=== PATIENT | female | born 1995 | race Caucasian/White ===

== ENCOUNTER 2022-10-14 21:05 | Emergency (ER) | payer OTHER, SELFPAY ==
[2022-10-14 21:09] VITALS: BP 139/76; PULSE 96; RESP 17; TEMP 37.1; O2SAT 95; BMI 38.2
[2022-10-14 21:41] LABS: Appearance Urine Clear; Color Urine Yellow; Glucose Urine UA Negative (Negative); Leukocyte Esterase Urine Trace (Negative); Nitrite Urine Negative (Negative); PH 5.5 (5.0-9.0); UMIC TRIGGER UA YES; Urine Blood Negative (Negative); Urine Ketones Negative (Negative); Urine Protein Negative (Neg-Trace)
[2022-10-14 21:42] LABS: UPreg QC Valid YES; Urine Pregnancy NEGATIVE (NEGATIVE)
[2022-10-14 21:46] LABS: Bacteria Urine None Seen (None Seen); Hyaline Casts Urine 0-2 /LPF (0-2); RBC Urine 0-2 /HPF (0-2); WBC Urine 0-5 /HPF (0-5)
[2022-10-14 21:53] LABS: Amphetamine Screen Urine Not Detected (Not Detect); Barbiturates, Urine Not Detected (Not Detect); Benzodiazepines Screen Urine Not Detected (Not Detect); Cannabinoid Screen Urine Not Detected (Not Detect); Cocaine Screen Urine Not Detected (Not Detect); Fentanyl, urine Not Detected (Not Detect); Opiate Screen Urine Not Detected (Not Detect); Phencyclidine Screen Urine Not Detected (Not Detect)
[2022-10-14 22:04] LABS: COVID-19 Test Negative (Negative); IDNOW Serial# 6674DD1D
[2022-10-14 22:45] LABS: MANUAL DIFF FLAG NO
[2022-10-14 22:46] LABS: Basophils Absolute Auto 0.1 X10*3/uL (0.0-0.2); Basophils Percent Auto 0.7 % (0-2); Eosinophils Absolute Auto 0.2 X10*3/uL (0.0-0.4); Eosinophils Percent Auto 1.6 % (0-4); Hematocrit 40.8 % (37.0-47.0); Hemoglobin 14.2 g/dl (12.0-16.0); Imm Gran Abs Auto 0.05 X10*3/uL (0.00-0.03); Imm Gran Pct Auto 0.5 % (0.0-0.4); Lymphocytes Absolute Auto 2.7 X10*3/uL (1.2-4.9); Mean Corpuscular HGB Conc 34.8 g/dl (31.0-35.0); Mean Corpuscular Hemoglobin 29.9 pg (27.0-33.0); Mean Corpuscular Volume 85.9 fL (80.0-98.0); Mean Platelet Volume 8.9 fL (9.4-12.3); Monocytes Percent Auto 8.8 % (2-11); Neutrophils Absolute Auto 6.9 x10*3/uL (2.0-8.3); Neutrophils Percent Auto 63.4 % (45-73); Platelet Count 267 X10*3/uL (160-400); Red Blood Count 4.75 X10*6/uL (4.20-5.50); Red Cell Distribution Width 11.9 % (11.0-16.0); White Blood Count 10.9 X10*3/uL (4.8-10.8)
[2022-10-14 23:02] LABS: Acetaminophen LAB < 17 mcg/mL (<30); Alanine Aminotransferase 18 U/L (0-31); Alkaline Phosphatase 51 U/L (39-117); Anion Gap 16 (12-20); Aspartate Amino Transferase 13 U/L (5-31); Bilirubin Total 0.3 mg/dL (0.0-1.0); Blood Urea Nitrogen 11 mg/dL (9-16); Calcium 9.3 mg/dL (8.4-10.2); Carbon Dioxide 25 mmol/L (22-29); Chloride 105 mmol/L (96-108); Creatinine Clr Calc Pharmacy 115.7; Estimated Glomerular Filt Rate > 60; Ethanol < 10 mg/dL; Glucose Random 85 mg/dL (60-115); Salicylate < 5.0 mg/dL (15-30); Sodium 142 mmol/L (135-145)
[2022-10-14 23:52] VITALS: BP 108/72; PULSE 87; RESP 16; TEMP 36.8; O2SAT 97
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
--- NOTE | 2022-10-15 05:34 | PC.NURSE ---
Patient slept through the night, no distress observed/reported, medication rec completed/approved/Mar active, behavior non concerning, VSS, patient is awaiting care team evaluation in the morning, will continue to monitor.
--- NOTE | 2022-10-15 06:57 | PC.NURSE ---
patient appears to remain asleep at present respirations are even and unlabored patient appears in no distress
[2022-10-15] MEDS: FLUoxetine HCl 20 MG CAPSULE 60 MG PO (10:02)
[2022-10-15 10:05] VITALS: BP 126/70; PULSE 83; RESP 13; TEMP 36.5; O2SAT 97
--- NOTE | 2022-10-15 13:23 | MHC.CARE ---
PHP Referral submitted
== END 2022-10-15 15:07 | disposition home or self-care (01) ==
PROVIDERS: Physician Assistant; Emergency Provider Internal Medicine; PCP Internal Medicine
DX: F33.1 Major depressive disorder, recurrent, moderate (principal); R45.851 Suicidal ideations; Z20.822 Contact with and (suspected) exposure to COVID-19; Z20.828 Contact with and (suspected) exposure to other viral communicable diseases; Z79.899 Other long term (current) drug therapy
CPT/HCPCS: 36415; 80053; 80143; 80179; 80307; 81001; 81025; 82077; 85025; 87635; 99284; S9485

== ENCOUNTER 2022-11-13 09:45 | Outpatient (RCR) | payer OTHER, SELFPAY ==
[2022-10-22 11:31] VITALS: BP 100/68; PULSE 88; TEMP 36.6
[2022-10-22 11:35] VITALS: BMI 38.9
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
--- NOTE | 2022-10-23 15:48 | HO.PHP ---
The clients case was discussed and opened in treatment team
--- NOTE | 2022-10-23 15:49 | HO.PHP ---
The client called out because her daughter is ill.
--- NOTE | 2022-10-28 13:14 | HO.PHP ---
Sanjana called out because her daughter is still sick.
--- NOTE | 2022-10-29 10:07 | P.PNPSP_ITS ---
Subjective Subjective Date of Service: 10/29/22 Reason For Visit: unspecified depressive d/o Medical Problems Affecting Mental Status: No Interim History: Describes mood as okay, up and down . States she has had a stressful few days. Her youngest child was in the hospital last week, multiple tests, has ear infection. No SI, no safety concerns. Would like to add medication, either Lamictal or Wellbutrin. Medication Compliance: Yes Side effects from medications: No Attending Groups: Yes Review of Systems Acute medical concerns: No Medical Review of Systems: unchanged Review of Systems Review of Systems Yes all other systems are reviewed and are negative Constitutional: Reports no additional constitutional complaints Mental Status Exam Mental Status Exam Patient Appearance: Appropriate Patient Orientation: Person, Place, Time and Situation Level of Consciousness: Appropriate Patient Behavior: Appropriate, Cooperative and Good Eye Contact Mood Description: Depressed and Anxious Affect Description: Depressed and Anxious Patient Cognition Impaired: No Ability to Follow Directions: Excellent Speech Pattern: Clear and Appropriate Memory Description: Intact Hallucinations: None Delusions: Not Present Perceptual Disturbances: Depersonalization Thought Process: Intact Thought Content: positive for Intact Depressive Symptoms: Increased Anxiety, Difficulty Sleeping, Loss of Int. in Ac tivity, Hopelessness, Loss of Energy and Difficulty Concentrating Judgement: Fair Diagnostics Vital Signs (24Hr): BMI result Body Mass Index 38.9 Assessment & Plan Assessment & Plan (1) Major depressive disorder, recurrent, moderate: Status: Acute Code(s): F33.1 - Major depressive disorder, recurrent, moderate Assessment and Plan: Patient continues with depressed mood an affect, anxiety. States her mood has been ?up and down ?. No SI reported, no safety concerns. Discussed medications Wellbutrin and Lamictal. She has tried both in the past, with positive effect. Reviewed her current symptoms. States that she is having difficulty in the mornings getting up been motivated, tending to ADLs in the morning. Also having trouble with concentration. Has taken Wellbutrin in the past, last summer. States that when she was taking it with the fluoxetine, she was able to work full-time, home life was good, felt content. Willing to restart the medication at this time. (2) Anxiety disorder, unspecified: Status: Acute Code(s): F41.9 - Anxiety disorder, unspecified Plan 1. Continue with current [facility] plan of care. 2. Start Wellbutrin SR 100 mg daily. 3. Continue with other medications as currently prescribed. 4. Follow-up as per protocol. Patient educated on: diagnosis, medication risk/benefits and therapeutic strategies Informed Consent: understands Reason for contiued partial hosp. stay Substantial Risk for: harm to self, inability to function and rapid decompensation Certification I certify that partial hospital treatment is medically necessary due to the symptoms and problems resulting from the patient's mental illness and the failure to treat the patient at the partial hospital level of care would likely result in the patient requiring inpatient psychiatric care which could not be prevented at a less intensive level of care. Total time managing care of this patient today __20__ minutes. Discharge Plan Discharge Attending provider: Gulshan Alves Medications: New bupropion HCl [Wellbutrin SR] 100 mg tablet sustained-release 12 hr 100 mg PO DAILY Qty: 30 0RF No Action trazodone 50 mg tablet 50 mg PO BEDTIME clonazepam 1 mg tablet 1 mg PO BID PRN (Reason: Anxiety) sumatriptan succinate 50 mg tablet 50 mg PO DIRECTED PRN (Reason: Migraine Headache) Rx Instructions: Take after onset of migraine. MR in 2 hours if ineffective. NTE 200 mg in 24 hours. gabapentin 300 mg capsule 300 mg PO BID fluoxetine 20 mg capsule 60 mg PO QAM
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
--- NOTE | 2022-11-10 14:04 | P.PNPSP_ITS ---
Subjective Subjective Date of Service: 11/10/22 Reason For Visit: unspecified depressive d/o Guardianship: No Medical Problems Affecting Mental Status: No Interim History: Reports feeling manic , describes little sleep, feeling full of energy, increased sexual thoughts, wanting to go shopping. Also reports AH, hearing scratching noises , having racing thoughts. Denies SI/HI. Willing to trial mood stabilizer. Medication Compliance: Yes Side effects from medications: Yes (hypomanic sx) Attending Groups: Yes Review of Systems Acute medical concerns: No Medical Review of Systems: changed Review of Systems Review of Systems hypomanic sx Genitourinary: Reports change in libido Reports behavioral changes Psychiatric: Reports behavioral changes, Reports change in libido and Reports hallucinations Endocrine: Reports change in libido Mental Status Exam Mental Status Exam Patient Appearance: Appropriate Patient Orientation: Person, Place, Time and Situation Level of Consciousness: Appropriate and Alert Patient Behavior: Talkative, Cooperative, Good Eye Contact and Crying (tearful at times) Mood Description: Labile and Expansive Affect Description: Labile and Expansive Patient Cognition Impaired: No Ability to Follow Directions: Good Speech Pattern: Clear, Rapid, Excessive and Pressured Memory Description: Intact Hallucinations: Auditory (hearing scratching noises) Delusions: Not Present Thought Process: Racing Thought Content: positive for Flight of Ideas and positive for Circumstantial Depressive Symptoms: Insomnia Judgement: Fair Diagnostics Vital Signs (24Hr): BMI result Body Mass Index 38.9 Assessment & Plan Assessment & Plan (1) Bipolar disorder: Qualifiers: Current bipolar episode type: hypomanic Status: Acute Code(s): F31.9 - Bipolar disorder, unspecified Assessment and Plan: Provisional Dx. Patient reports her mother has bipolar disorder, and that she has witnessed her mother in manic state in the past. Feels that she is hypomanic at this time, with sx of increased sexual thoughts, wanting to spend money, little sleep, full of energy, with racing thoughts. _+AH. Presents with rapid/pressured speech, labile affect. No SI, feels safe. Believes her current sx related to recent addition of wellbutrin. She has taken the fluoxtine 60mg daily for some time, with no adverse s/e. Patient reports she has taken quetiapine as an adolescent, with good effect. She is willing to take now, but does not want long-term, due to s/e of weight gain. We discussed d/c wellbutrin, and short term script quetiapine, as well as start lamotrigine. She says she took lamotrigine in the past, but it was stopped when she became . Each medication discussed, including indications of use, side effects both small and more serious, as well as alternatives for treatment. She is willing to trial these medication changes at this time. (2) Major depressive disorder, recurrent, moderate: Status: Acute Code(s): F33.1 - Major depressive disorder, recurrent, moderate (3) Anxiety disorder, unspecified: Status: Acute Code(s): F41.9 - Anxiety disorder, unspecified Plan 1. Discontinue bupropion. 2. Start quetiapine, 25mg BID. 3. Start lamotrigine taper, with 25mg daily X 14 days, followed by 50mg daily X 14 days, then 100mg daily thereafter. 4. Continue other medications as prescribed. 5. Contact outpatient psychiatric provider. 6. Follow-up as per protocol. Patient educated on: diagnosis, medication risk/benefits and therapeutic strategies Informed Consent: understands Reason for contiued partial hosp. stay Substantial Risk for: harm to self, inability to function, rapid decompensation and med/psych decompensation Certification I certify that partial hospital treatment is medically necessary due to the symptoms and problems resulting from the patient's mental illness and the failu re to treat the patient at the partial hospital level of care would likely result in the patient requiring inpatient psychiatric care which could not be prevented at a less intensive level of care. Total time managing care of this patient today __30__ minutes. Discharge Plan Discharge Attending provider: Gulshan Alves Medications: New quetiapine 25 mg tablet 25 mg PO BID Qty: 60 0RF lamotrigine 25 mg tablet See Rx Instructions .ROUTE .COMPLEX Qty: 42 0RF Rx Instructions: Take 25 mg orally (1 tab) daily for 14 days. THEN, take 50 mg orally (2 tabs) for 14 days. No Action trazodone 50 mg tablet 50 mg PO BEDTIME clonazepam 1 mg tablet 1 mg PO BID PRN (Reason: Anxiety) sumatriptan succinate 50 mg tablet 50 mg PO DIRECTED PRN (Reason: Migraine Headache) Rx Instructions: Take after onset of migraine. MR in 2 hours if ineffective. NTE 200 mg in 24 hours. gabapentin 300 mg capsule 300 mg PO BID fluoxetine 20 mg capsule 60 mg PO QAM Stand Alone Forms: Patient Portal Discharge page Patient Education: Lamotrigine (By mouth), Quetiapine (By mouth)
--- NOTE | 2022-11-12 11:57 | P.EN_ITS ---
Event Note Date of Service: 11/12/22 Event Note: Patient reported side effect of sedation with quetiapine. Met with patient briefly, recommended she stop the morning dose, continue with quetiapine 25 at bedtime. Patient became tearful, says she is feeling stressed. [facility] clinician notified, Debby will meet with her in several minutes. Time Spent With Patient Time: Total time managing care of this patient today _5___ minutes.
== END 2022-11-13 23:59 | disposition home or self-care (01) ==
LOC: HO.PHPA 09:45
PROVIDERS: Visit Provider Psychiatry & Neurology Psychiatry
DX: F33.1 Major depressive disorder, recurrent, moderate (principal); F41.9 Anxiety disorder, unspecified; Z79.899 Other long term (current) drug therapy
CPT/HCPCS: 90791; 90853